=== PATIENT | male | born 1965 | race Caucasian/White ===

== ENCOUNTER 2025-01-26 07:34 | Inpatient (IN) | payer BC, OTHER ==
[2025-01-26] VITALS (12 sets, daily range): BP systolic 140–164; BP diastolic 88–102; PULSE 84–101; RESP 12–22; TEMP 97.8–100.5; O2SAT 93–97
[~2025-01-26] VITALS: Ht 172.7 cm; Wt 90.0 kg
--- NOTE | 2025-01-26 07:51 | ED.PDOC ---
HPI Comments 59 year old male presents to the ED with a PMHx of HTN, and DM associated to the c/c of non-radiating sternal CP. Pt states that he woke up at 4am this morning to use the restroom, and upon standing felt a pressure like sensation in his chest. Pt Denies fever, chills, coughing, N/V/D, SOB, or other associated symptoms, modifiers, or recent injuries or sick contact that this time. Chief Complaint: Chest Pain Time Seen by MD: 07:47 Reviewed Notes: Medications, Allergies Allergies: Coded Allergies: NO KNOWN ALLERGIES (Unverified , 01/26/25) Information Source: Patient Mode of Arrival: Ambulatory Severity: Moderate Timing: Hours Duration: Since onset, Hours Prehospital treatment: None Location: Substernal Radiation: No Radiation Quality: Pressure Onset: At Rest Cardiac Risk Factors: HTN, Diabetes PE Risk Factors: None History of: None Modifying Factors: Nothing Associated Signs and Symptoms: None Past Medical History PAST MEDICAL HISTORY: DM, HTN Surgical History: Denies all surgeries Family History Family History: Reviewed,noncontributory to illness, No family hx of Cancer, No family hx of DM, No family hx of Heart chantell, No family hx of HTN, No family hx ofKidney chantell, No family hx of Liver chantell, No family hx of Lung chantell, No family hx of Stroke Social History Smoker: Non-Smoker Alcohol: Denies ETOH Use Drugs: Denies Drug Use Lives In: Home Constitutional: denies: chills, diaphoresis, fatigue, fever, malaise, sweats, weakness, others EENTM: denies: blurred vision, double vision, ear bleeding, ear discharge, ear drainage, ear pain, ear ringing, eye pain, eye redness, hearing loss, mouth pain, mouth swelling, nasal discharge, nose bleeding, nose congestion, nose pain, photophobia, tearing, throat pain, throat swelling, voice changes, others Respiratory: denies: cough, hemoptysis, orthopnea, SOB at rest, shortness of breath, SOB with excertion, stridor, wheezing, others Cardiovascular: reports: chest pain; denies: dizzy spells, diaphoresis, Dyspnea on exertion, edema, irregular heart beat, left arm pain, lightheadedness, palpitations, PND, syncope, others Gastrointestinal: denies: abdomen distended, abdominal pain, blood streaked bowels, constipated, diarrhea, dysphagia, difficulty swallowing, hematemesis, melena, nausea, poor appetite, poor fluid intake, rectal bleeding, rectal pain, vomiting, others Genitourinary: denies: burning, dysuria, flank pain, frequency, hematuria, incontinence, penile discharge, penile sore, pain, testicle pain, testicle swelling, urgency, others Neurological: denies: dizziness, fainting, headache, left sided numbness, left sided weakness, numbness, paresthesia, pre-existing deficit, right sided numbness, right sided weakness, seizure, speech problems, tingling, tremors, weakness, others Musculoskeletal: denies: back pain, gout, joint pain, joint swelling, muscle pain, muscle stiffness, neck pain, others Integumetry: denies: bruises, change in color, change in hair/nails, dryness, laceration, lesions, lumps, rash, wounds, others Allergic/Immunocompromised: denies: Difficulty Healing, Frequent Infections, Hives, Itching, others Hematologic/Lymphatic: denies: anemia, blood clots, easy bleeding, easy bruising, swollen glands, others Endocrine: denies: excessive hunger, excessive sweating, excessive thirst, excessive urination, flushing, intolerance to cold, intolerance to heat, unexplained weight gain, unexplained weight loss, others Psychiatric: denies: anxiety, bipolar disorder, depression, hopeless, panic disorder, schizophrenia, sleepless, suicidal, others All Other Systems: Reviewed and Negative Physical Exam General Appearance: Mild Distress, Obese HEENT: Pharynx Normal Neck: Non-Tender Respiratory: No Respiratory Distress Cardiovascular: No Murmur Breast Exam: Deferred Gastrointestinal: No Organomegaly Genitalia: Deferred Pelvic: Deferred Rectal: Deferred Extremities: No pedal edema Neurologic: No Motor Deficits Cerebellar Function: NOT DONE Reflexes: NOT DONE Skin: Normal Color Lymphatic: NOT DONE Was a procedure done? Was a procedure done?: No CP Differential Dx Differential Diagnosis: MAT, ME Differential Diagnosis: HTN Essential, HTN Accelerated Differential Diagnosis: Chest Wall Pain, Myocardial Infarction, Pericarditis X-Ray, Labs, Meds, VS Vital Signs Date Time Temp Pulse Resp B/P (MAP) Pulse Ox O2 Delivery O2 Flow Rate FiO2 01/26/25 07:41 97.8 98 18 164/103 (123) 97 97.8 01/26/25 07:40 89 Lab Test 01/26/25 08:32 01/26/25 07:43 Range/Units Troponin I High Sensitivity Pending 1201 *H </=54 ng/L White Blood Count 6.5 4.4-10.8 10^3/uL Red Blood Count 5.27 4.5-5.90 10^6/uL Hemoglobin 17.0 13.5-17.5 g/dL Hematocrit 48.0 41.0-53.0 % Mean Corpuscular Volume 91.1 80.0-100.0 fL Mean Corpuscular Hemoglobin 32.2 H 28.0-32.0 pg Mean Corpuscular Hemoglobin Concent 35.3 32.0-36.0 g/dL Red Cell Distribution Width 12.9 11.8-14.3 % Platelet Count 165 140-450 10^3/uL Mean Platelet Volume 8.6 6.9-10.8 fL Neutrophils (%) (Auto) 82.2 H 37.0-80.0 % Lymphocytes (%) (Auto) 13.1 10.0-50.0 % Monocytes (%) (Auto) 3.5 0.0-12.0 % Eosinophils (%) (Auto) 0.2 0.0-7.0 % Basophils (%) (Auto) 1.0 0.0-2.0 % Neutrophils # (Auto) 5.3 1.6-8.6 10 ^3/uL Lymphocytes # (Auto) 0.9 0.4-5.4 10 ^3/uL Monocytes # (Auto) 0.2 0-1.3 10 ^3/uL Eosinophils # (Auto) 0 0-0.8 10 ^3/uL Basophils # (Auto) 0.1 0-0.2 10 ^3/uL Nucleated Red Blood Cells 0.1 % Sodium Level 131 L 136-145 mmol/L Potassium Level 3.7 3.5-5.1 mmol/L Chloride Level 96 L 98-107 mmol/L Carbon Dioxide Level 21 20-31 mmol/L Anion Gap 14 5-15 Blood Urea Nitrogen 12 9-23 mg/dL Creatinine 1.01 0.700-1.30 mg/dL Glomerular Filtration Rate Calc 85 >90 mL/min BUN/Creatinine Ratio 11.9 10.0-20.0 Serum Glucose 483 *H 74-106 mg/dL Calcium Level 10.3 8.7-10.4 mg/dL Current Medications Medications (Trade) Dose Ordered Sig/Garett Route Start Time Stop Time Status Last Admin Aspirin 324 mg ONCE ONCE PO 01/26/25 08:15 01/26/25 08:16 DC 01/26/25 08:17 ORDERING PHYSICIAN: JIMMY NAVA MD PROCEDURE(s): CXRP - CHEST PORTABLE REASON: CHEST PAIN ORDER NUMBER(s): [id number], ACCESSION NUMBER(s): [id number] CHEST RADIOGRAPH Indication: CHEST PAIN Technique: Single frontal view of the chest was obtained COMPARISON: None FINDINGS: Lines and Tubes: None Lungs: Clear Pleura: No effusion. No pneumothorax. Cardiomediastinal contours: Unremarkable Bones: Unremarkable IMPRESSION: No acute disease. Time of 1ST Reevaluation: 08:17 Reevaluation 1ST: Unchanged Patient Education/Counseling: Diagnosis, Treatment Family Education/Counseling: No Family Present Departure 1 Departure Time of Disposition: 08:51 (Patient presented with chest pain that was concerning for possible STEMI, ACS, PE, Pneumonia, Muscle Strain, COPD, Dissection. Data: 1. I ordered and reviewed the result of at least 3 labs including a CBC, BMP, and Troponin. 2. I independently interpreted the following tests: EKG which shows normal sinus and Chest X-ray which shows benign chest.Risk:This patient has a high risk of morbidity due to further diagnostic testing or treatment and may suffer from an acute cardiac or respiratory disorder. Workup reveals NSTEMI and uncontrolled diabetes and patient should be admitted for further workup and possible expert consultation. ) Impression: Primary Impression: NSTEMI (non-ST elevated myocardial infarction) Additional Impressions: Uncontrolled diabetes mellitus Qualified Codes: E11.65 - Type 2 diabetes mellitus with hyperglycemia Acute chest pain Disposition: ADMITTED INPATIENT Admit to: Tele Condition: Guarded Critical Care Note Critical Care Time?: Yes Critical care comment: Acute chest pain Authorized and Performed by: Jimmy Nava MD Total critical care time: Approximately 39 minutes Due to a high probability of clinically significant, life threatening deterioration, the patient required my highest level of preparedness to intervene emergently and I personally spent this critical care time directly and personally managing the patient. This critical care time included obtaining a history; examining the patient; pulse oximetry; ordering and review of studies; arranging urgent treatment with development of a management plan; evaluation of patient's response to treatment; frequent reassessment; and, discussions with other providers. This critical care time was performed to assess and manage the high probability of imminent, life-threatening deterioration that could result in multi-organ failure. It was exclusive of separately billable procedures and treating other patients and teaching time. Please see my other sections and the rest of the note for further information on patient assessment and treatment. Stability Stability form required: No Heart Score Heart Score: Heart Score Response (Comments) Value History Moderate Suspicious 1 EKG Normal 0 Age 45-64 1 Risk Factors >3 or Hx ASHD 2 Troponin >3 x's Normal limit 2 Total 6 I personally scribed for JIMMY NAVA MD ([email or web address]) on 01/26/25 at 07:51. El ectronically submitted by Ruy Flaherty ([email or web address]). I personally scribed for JIMMY NAVA MD ([email or web address]) on 01/26/25 at 08:22. E lectronically submitted by Jadiel Zacarias ([email or web address]). I personally scribed for JIMMY NAVA MD ([email or web address]) on 01/26/25 at 08:36. El ectronically submitted by Ruy Flaherty ([email or web address]). JIMMY NAVA MD January 26, 2025 07:51
[2025-01-26 07:57] LABS: Basophils # (auto) 0.1 10 ^3/uL (0-0.2); Eosinophils # (auto) 0 10 ^3/uL (0-0.8); Eosinophils % (auto) 0.2 % (0.0-7.0); Lymphocytes # (auto) 0.9 10 ^3/uL (0.4-5.4); Lymphocytes % (auto) 13.1 % (10.0-50.0); Mean Corpuscular Hemoglobin 32.2 pg (28.0-32.0); Mean Corpuscular Hgb Conc. 35.3 g/dL (32.0-36.0); Mean Corpuscular Volume 91.1 fL (80.0-100.0); Monocytes # (auto) 0.2 10 ^3/uL (0-1.3); Monocytes % (auto) 3.5 % (0.0-12.0); Neutrophils # (auto) 5.3 10 ^3/uL (1.6-8.6); Neutrophils % (auto) 82.2 % (37.0-80.0); Nucleated Red Blood Cells % 0.1 %; Platelet Count (auto) 165 10^3/uL (140-450); Red Blood Cells 5.27 10^6/uL (4.5-5.90); Red Cell Distribution Width 12.9 % (11.8-14.3); White Blood Cell 6.5 10^3/uL (4.4-10.8)
[2025-01-26 07:59] LABS: Potassium 3.7 mmol/L (3.5-5.1)
[2025-01-26 08:00] LABS: Anion Gap 14 (5-15); Calcium 10.3 mg/dL (8.7-10.4); Carbon Dioxide 21 mmol/L (20-31)
[2025-01-26 08:02] LABS: Chloride 96 mmol/L (98-107); Sodium 131 mmol/L (136-145)
[2025-01-26 08:05] LABS: BUN/Creatinine Ratio 11.9 (10.0-20.0); Blood Urea Nitrogen 12 mg/dL (9-23)
[2025-01-26 08:09] LABS: Glucose 483 mg/dL (74-106)
--- NOTE | 2025-01-26 08:13 | DVH ---
CHEST RADIOGRAPH Indication: CHEST PAIN Technique: Single frontal view of the chest was obtained COMPARISON: None FINDINGS: Lines and Tubes: None Lungs: Clear Pleura: No effusion. No pneumothorax. Cardiomediastinal contours: Unremarkable Bones: Unremarkable IMPRESSION: No acute disease.
[2025-01-26] MEDS: ASPirin 81 mg TAB PO ONE ×2 (08:17→11:12)
[2025-01-26] MEDS: InsuLIN REG 1unit/0.01ml Soln (100units/ml) IV ONE (09:10)
[2025-01-26] MEDS: HEPARIN SODIUM (PORCINE) 5000 UNITS/ML 1ML VIAL IV ONE (09:19)
[2025-01-26 09:20] LABS: INR 1.01 (0.9-1.15); Partial Thromboplastin Time 25.1 SEC (24.5-34.5); Prothrombin Time 10.7 sec (9.3-11.8)
[2025-01-26] MEDS: HEPARIN DRIP/D5W 100UNITS/ML 250 ML IV SCH (09:22)
[2025-01-26] MEDS ORDERED: HYDROcodone-ACET 5/325MG TAB PO PRN (11:00)
[2025-01-26] MEDS ORDERED: NITROGLYCERIN 0.4 MG SL TAB SL PRN (11:00)
[2025-01-26] MEDS ORDERED: MORPHINE SULFATE INJ 2 MG/ml SYRG IV PRN (11:00)
[2025-01-26] MEDS: ACCU-CHEK COMFORT CURVE STRIP VI SCH (11:30)
[2025-01-26] MEDS: InsuLIN REG 1unit/0.01ml Soln (100units/ml) SC SCH (11:30)
[2025-01-26] MEDS ORDERED: HEPARIN DRIP/D5W 100UNITS/ML 250 ML IV SCH (11:30)
[2025-01-26] MEDS ORDERED: DEXTROSE (50%) 50ML SYRG IV PRN (11:30)
[2025-01-26] MEDS: IODIXANOL 320MG/ML 100ML BTL IV ONE ×3 (12:21→13:59)
[2025-01-26] MEDS: HEPARIN SODIUM (PORCINE) 5000 UNITS/ML 1ML VIAL ONE (12:44)
[2025-01-26] MEDS: fentaNYL CITRATE 100 MCG/2 ML VL ONE (12:44)
[2025-01-26] MEDS: VERAPAMIL 2.5MG/ML INJ 2ML VIAL IV ONE (12:44)
[2025-01-26] MEDS: SODIUM CHL 0.9% 50 ML ONE ×2 (12:45→12:47)
[2025-01-26] MEDS: MIDAZOLAM HCL 2MG/2ML 2ml VIAL (1mg/ml) ONE (12:45)
[2025-01-26] MEDS: LIDOCAINE 2%HCL (LOCAL ANESTH.) INJ 10ml MDV ONE (12:46)
[2025-01-26] MEDS: ANGIOMAX 250 MG VIAL IV ONE (12:46)
[2025-01-26] MEDS: CLOPIDOGREL BISULFATE 75 MG TAB PO ONE (13:02)
[2025-01-26] MEDS: CLOPIDOGREL BISULFATE 75 MG TAB ONE (13:04)
--- NOTE | 2025-01-26 13:31 | DVHCONRES ---
Date Seen: January 26, 2025 Resident Creating Document: MIGUEL BURR RESIDENT History of Present Illness 59 year old male with PMH of DM, HTN persented with complaints of chest pain that started at 4 am which the patient described as 10/10, pressure like, substernal, exacerbated on activity, not relieved with rest, non radiating. Denied any shortness of breath, palpitation, orthopnea, PND. Past medical history Diabetes mellitus, hypertension Past surgical history Denied Family history Father at the age of 55 due to myocardial infarction Social history Denied smoking, marijuana, alcohol and any other drug intake Medication history Glipizide Rosuvastatin Allergies: Coded Allergies: NO KNOWN ALLERGIES (Unverified , 01/26/25) Home Meds Reported Medications Tamsulosin Hcl (Tamsulosin Hcl) 0.4 Mg Cap, CAP PO 01/26/25 Glipizide (Glipizide) 5 Mg Tab, 1 TAB PO DAILY 01/26/25 Current Medications Current Medications Medications (Trade) Dose Ordered Sig/Garett Route PRN Reason Start Time Stop Time Status Last Admin Heparin Sodium/ Dextrose 250 ml @ 10 mls/hr Q24H IV 01/26/25 09:00 01/26/25 13:01 DC 01/26/25 09:22 Acetaminophen/ Hydrocodone Bitart ([place] 5/325MG Tab) 1 tab Q4HP PRN PO MODERATE PAIN (4-6 PAIN SCALE) 01/26/25 11:00 Enoxaparin Sodium (Lovenox) 30 mg DAILY SC 01/27/25 10:00 01/26/25 11:06 DC Acetaminophen (Tylenol Tablet) 650 mg Q6HP PRN PO PAIN SCALE 1-3 OR TEMP>100.4 01/26/25 11:00 Morphine Sulfate 2 mg Q4HPRN PRN IV SEVERE PAIN (7-10 PAIN SCALE) 01/26/25 11:00 Nitroglycerin (Ntrostat Sublingual) 0.4 mg Q5MINP PRN SL FOR CHEST PAIN 01/26/25 11:00 Morphine Sulfate 2 mg Q30M PRN IV FOR CHEST PAIN 01/26/25 11:00 Heparin Sodium/ Dextrose 250 ml @ 10 mls/hr Q24H IV 01/26/25 11:30 Diagnostic Test (Pha) (Accu-Chek Comfort Curve T) 1 strip ACHS 01/26/25 11:30 Insulin Human Regular (InsuLIN R) ACHS SC 01/26/25 11:30 Dextrose 50 ml UD PRN IV Blood Sugar LESS THAN 60 01/26/25 11:30 Pravastatin Sodium (Pravachol Tablet) 20 mg HS PO 01/26/25 22:00 Enoxaparin Sodium (Lovenox) 30 mg DAILY SC 01/27/25 10:00 01/26/25 12:19 DC Review of Systems As described in the HPI Vital Signs Vital Signs Date Time Temp Pulse Resp B/P (MAP) Pulse Ox O2 Delivery O2 Flow Rate FiO2 01/26/25 12:00 106 01/26/25 12:00 21 153/108 (123) 93 01/26/25 09:48 Room Air* 2 N/A Nasal Cannula* 01/26/25 07:41 97.8 97.8 Physical Exam Examination General Appearance: Alert, Oriented X3, Cooperative, No acute distress HEENT: EOMI Respiratory: Clear to auscultation, Normal air movement Cardiovascular: Regular rate, Normal S1, Normal S2 Abdominal: Normal bowel sounds Extremities: No cyanosis, No edema, Normal pulses, No tenderness/swelling Skin: No rashes, No breakdown Neuro: Normal gait, Normal speech, Strength at 5/5 X4 ext, Normal tone, Sensation intact, Cranial nerves 3-12 NL, Reflexes 2+ Psych/Mental Status: Mental status NL, Mood NL Labs/Diagnostic Data Labs Test 01/26/25 10:40 01/26/25 09:08 01/26/25 07:43 Range/Units Troponin I High Sensitivity 5555 *H </=54 ng/L POC Glucose 370 H 70-106 mg/dl White Blood Count 6.5 4.4-10.8 10^3/uL Red Blood Count 5.27 4.5-5.90 10^6/uL Hemoglobin 17.0 13.5-17.5 g/dL Hematocrit 48.0 41.0-53.0 % Mean Corpuscular Volume 91.1 80.0-100.0 fL Mean Corpuscular Hemoglobin 32.2 H 28.0-32.0 pg Mean Corpuscular Hemoglobin Concent 35.3 32.0-36.0 g/dL Red Cell Distribution Width 12.9 11.8-14.3 % Platelet Count 165 140-450 10^3/uL Mean Platelet Volume 8.6 6.9-10.8 fL Neutrophils (%) (Auto) 82.2 H 37.0-80.0 % Lymphocytes (%) (Auto) 13.1 10.0-50.0 % Monocytes (%) (Auto) 3.5 0.0-12.0 % Eosinophils (%) (Auto) 0.2 0.0-7.0 % Basophils (%) (Auto) 1.0 0.0-2.0 % Neutrophils # (Auto) 5.3 1.6-8.6 10 ^3/uL Lymphocytes # (Auto) 0.9 0.4-5.4 10 ^3/uL Monocytes # (Auto) 0.2 0-1.3 10 ^3/uL Eosinophils # (Auto) 0 0-0.8 10 ^3/uL Basophils # (Auto) 0.1 0-0.2 10 ^3/uL Nucleated Red Blood Cells 0.1 % Prothrombin Time 10.7 9.3-11.8 sec Prothrombin Time INR 1.01 0.9-1.15 Activated Partial Thromboplast Time 25.1 24.5-34.5 SEC Sodium Level 131 L 136-145 mmol/L Potassium Level 3.7 3.5-5.1 mmol/L Chloride Level 96 L 98-107 mmol/L Carbon Dioxide Level 21 20-31 mmol/L Anion Gap 14 5-15 Blood Urea Nitrogen 12 9-23 mg/dL Creatinine 1.01 0.700-1.30 mg/dL Glomerular Filtration Rate Calc 85 >90 mL/min BUN/Creatinine Ratio 11.9 10.0-20.0 Serum Glucose 483 *H 74-106 mg/dL Calcium Level 10.3 8.7-10.4 mg/dL Plan/Recommendation Assessment/plan # chest pain likely NSTEMI EKG reveals no ST changes Trops= 1201, 1672, 5555 # hypertension # diabetes mellitus type 2 Plan Patient was given aspirin 325 mg in the ER Started on heparin drip, continue with same Plavix 300 mg once Atorvastatin 80 mg once IV morphine for chest pain p.r.n. 0.4 mg nitroglycerin p.r.n. Nasal cannula if SpO2 less than 94% Discussed with the manager terminal, patient planned to have left heart catheterization coronary angiogram possible percutaneous transluminal coronary angioplasty with possible stent placement Patient was explained about risk/benefit of left heart catheterization, and also risk/benefit not going for the procedure including Patient understood all the risk and benefits. Case discussion with Dr Paniagua. Plan discussed with: Patient, Other MIGUEL BURR RESIDENT January 26, 2025 13:31
--- NOTE | 2025-01-26 14:59 | DVHOP2 ---
Operative Report - 2 Report Details Date: 01/26/25 Preop Diagnosis: ACS Postop Diagnosis: SIGNIFICANT LESION LAD. SUCCESSFUL PTCA STENTING AND ULTRASOUND OF THE LAD. Surgeon: Carlo Loredo MD Anesthesiologist: Conscious sedation Anesthesia: Mac, Local Consent: The patient was informed of the risks and benefits of the procedure. These include but are not limited to complications of anesthesia, postoperative infection, incomplete relief of symptoms, recurrence of symptoms, damage to blood vessels, nerves and tendons, deep venous thrombosis, pulmonary embolism and possible need for repeat surgery in the future. Complications: No complications Findings: Lad stenosis Indications for Surgery: Acute coronary syndrome non ST-elevation PR. Name of Procedure Performed Left heart catheterization bilateral cine coronary angiography. Left ventriculography intravascular ultrasound of LAD and intermediate artery. PTCA and stenting of left anterior descending coronary artery. Procedure Details Procedure Details: Prior local anesthesia with 2% lidocaine to the right wrist and full informed consent obtained the patient is prepped and draped in usual fashion followed by placement of a six [place] sheath into the right radial artery through which a 3- 0 EBU guiding catheter was used to perform angioplasty of the LAD. A multipurpose catheter was used to cannulate the right coronary ostium and for ventriculography without complications. Hemodynamics:: Aortic blood pressure was 130/70. End-diastolic pressure was 16 with a gradient across the aortic valve on pullback. Coronary anatomy: The RCA is a large vessel it has sluggish flow. There is mild to moderate plaquing and ectasia. PDA and posterolateral branches are normal as is the RCA itself. Left main is large and normal. The left anterior descending is a large vessel it has no stenosis in its proximal mid or distal segments. Left anterior descending coronary artery has a severe stenosis of 99% proximally. It is hazy. The mid and distal segments of the LAD could not be well-visualized. There is LOUIE one grade flow. The intermediate artery adjacent to the LAD also has mild haziness. Uncertain stenosis from a angiographic evaluation however intravascular ultrasound was performed showing there was a proximally a 60-70% lesion with a heart a critical narrowing. The circumflex is a large vessel with moderate plaquing it is nondominant. The marginals free of significant disease Ventriculography in the ROUSE projection shows an EF of 55%. Angioplasty was performed for which the three five EBU guide was used to evaluate the left main LAD and left coronary system. A Specter wire was placed into the LAD and a 2nd Specter was placed into the intermediate artery. Intravascular ultrasound evaluation of both arteries then was performed. There was a significant lesion in the LAD and a moderate lesion intermediate. We then proceeded to perform angioplasty with a three five balloon into the LAD. We then placed a three 5 x 12 mm stent into the proximal LAD and 2nd intravascular ultrasound revealed poor apposition distal segment which we took a 5 mm balloon and inflated to 10 atmospheres with notable improvement in flow. There was no thrombus formation under dissection. post dilatation ultrasound revealed excellent opposition. There was no impingement of flow into the intermediate vessel. The patient tolerated the procedure well there were no complications Impression: Successful PTCA and stenting of the LAD. Single-vessel coronary artery disease as mentioned. Moderate disease of the intermediate without critical lesions. Normal left ventricular ejection fraction. Mildly elevated left ventricular end-diastolic pressure at rest. Recommendations: Patient would undergo risk factor modification continue lipid- lowering therapy dual antiplatelet therapy for at least a year. Blood pressure control. Condition Good Disposition Still a Patient Date of Service: January 26, 2025 Billing Provider: CARLO LOREDO Sr., MD Cardiology Common Codes: PROCEDURE ONLY Cardiology Procedure Codes: 55221 -PTCA W/STENT PLACEMENT, 78322-KMEF FOR STEMI W/STENT ( Intravascular ultrasound of left anterior descending coronary artery left main and intermediate artery. PTCA and stenting of the LAD. Left heart catheterization bilateral cine coronary angiography left ventriculography.) CARLO LOREDO Sr., MD January 26, 2025 14:59
[2025-01-26] MEDS: ATORVASTATIN 20 MG TAB PO ONE (15:27)
[2025-01-26] MEDS: SODIUM CHLORIDE 0.9% 1,000 ML IV SCH (15:28)
[2025-01-26] MEDS ORDERED: TAMS0.4C39 PO (17:07)
[2025-01-26] MEDS ORDERED: GLIP5TAB21 PO (17:07)
--- NOTE | 2025-01-26 17:08 | DVHHP2 ---
History of Present Illness History of Present Illness 59-year-old male with a history type 2 diabetes, hyperlipidemia presents to emergency room for sudden onset of chest pain last night. Patient was awakened by pressure-like chest pain at night. Chest pain was not relieved. Patient denies any fever chills Review of Systems Eyes: No: Pain, Vision change, Conjunctivae inflammation, Eyelid inflammation, Other, Redness Cardiovascular: Chest Pain Gastrointestinal: No: Nausea, Vomiting, Abdominal Pain, Diarrhea, Constipation, Melena, Hematochezia, Other Genitourinary: No Dysuria, No Frequency, No Incontinence, No Hematuria, No Retention, No Other Musculoskeletal: No: other, neck pain, shoulder pain, arm pain, back pain, hand pain, leg pain, foot pain Allergies: Coded Allergies: NO KNOWN ALLERGIES (Unverified , 01/26/25) Medications Current Medications Medications Dose Ordered Sig/Garett Route Start Time Stop Time Status Last Admin Dose Admin Acetaminophen/ Hydrocodone Bitart 1 tab Q4HP PRN PO 01/26/25 11:00 Acetaminophen 650 mg Q6HP PRN PO 01/26/25 11:00 Morphine Sulfate 2 mg Q4HPRN PRN IV 01/26/25 11:00 Nitroglycerin 0.4 mg Q5MINP PRN SL 01/26/25 11:00 Morphine Sulfate 2 mg Q30M PRN IV 01/26/25 11:00 Diagnostic Test (Pha) 1 strip ACHS 01/26/25 11:30 Insulin Human Regular ACHS SC 01/26/25 11:30 Dextrose 50 ml UD PRN IV 01/26/25 11:30 Pravastatin Sodium 20 mg HS PO 01/26/25 22:00 Sodium Chloride 1,000 ml @ 75 mls/hr [id number] IV 01/26/25 15:00 01/27/25 02:59 01/26/25 15:28 75 MLS/HR Aspirin 81 mg DAILY PO 01/27/25 10:00 Clopidogrel Bisulfate 75 mg DAILY PO 01/27/25 10:00 Exam Vital Signs Vital Signs Date Time Temp Pulse Resp B/P (MAP) Pulse Ox O2 Delivery O2 Flow Rate FiO2 01/26/25 15:44 88 12 150/96 (114) 96 01/26/25 14:44 98.3 98.3 01/26/25 09:48 Room Air* 2 N/A Nasal Cannula* General Appearance: Alert, Oriented X3 HEENT: Atraumatic Respiratory: Clear to auscultation, Normal air movement Cardiovascular: Regular rate, Normal S1, Normal S2, No murmurs Abdominal: Normal bowel sounds, Soft, No tenderness, No hepatospenomegaly Extremities: No clubbing Labs/Xrays Labs Test 01/26/25 15:25 01/26/25 09:08 01/26/25 07:43 Range/Units Troponin I High Sensitivity 33420 *H </=54 ng/L POC Glucose 370 H 70-106 mg/dl White Blood Count 6.5 4.4-10.8 10^3/uL Red Blood Count 5.27 4.5-5.90 10^6/uL Hemoglobin 17.0 13.5-17.5 g/dL Hematocrit 48.0 41.0-53.0 % Mean Corpuscular Volume 91.1 80.0-100.0 fL Mean Corpuscular Hemoglobin 32.2 H 28.0-32.0 pg Mean Corpuscular Hemoglobin Concent 35.3 32.0-36.0 g/dL Red Cell Distribution Width 12.9 11.8-14.3 % Platelet Count 165 140-450 10^3/uL Mean Platelet Volume 8.6 6.9-10.8 fL Neutrophils (%) (Auto) 82.2 H 37.0-80.0 % Lymphocytes (%) (Auto) 13.1 10.0-50.0 % Monocytes (%) (Auto) 3.5 0.0-12.0 % Eosinophils (%) (Auto) 0.2 0.0-7.0 % Basophils (%) (Auto) 1.0 0.0-2.0 % Neutrophils # (Auto) 5.3 1.6-8.6 10 ^3/uL Lymphocytes # (Auto) 0.9 0.4-5.4 10 ^3/uL Monocytes # (Auto) 0.2 0-1.3 10 ^3/uL Eosinophils # (Auto) 0 0-0.8 10 ^3/uL Basophils # (Auto) 0.1 0-0.2 10 ^3/uL Nucleated Red Blood Cells 0.1 % Prothrombin Time 10.7 9.3-11.8 sec Prothrombin Time INR 1.01 0.9-1.15 Activated Partial Thromboplast Time 25.1 24.5-34.5 SEC Sodium Level 131 L 136-145 mmol/L Potassium Level 3.7 3.5-5.1 mmol/L Chloride Level 96 L 98-107 mmol/L Carbon Dioxide Level 21 20-31 mmol/L Anion Gap 14 5-15 Blood Urea Nitrogen 12 9-23 mg/dL Creatinine 1.01 0.700-1.30 mg/dL Glomerular Filtration Rate Calc 85 >90 mL/min BUN/Creatinine Ratio 11.9 10.0-20.0 Serum Glucose 483 *H 74-106 mg/dL Calcium Level 10.3 8.7-10.4 mg/dL Assessment/Plan Assessment/Plan 1. Non-STEMI likely type 1 S/P stent placement to LAD, cardiac consult, heparin drip 2. Type 2 diabetes Insulin sliding scale 3. Hyperlipidemia Start atorvastatin 80 4. Obesity Monitor Plan discussed with: Patient My Orders Orders - MARILYN PALMA Procedure Category Date Status Time Admit ADMIT 01/26/25 Transmitted 10:46 Allergies EFREN 01/26/25 In Process 10:46 Code Status CODE 01/26/25 Transmitted 10:46 Hydrocodone-Acet PHA 01/26/25 In Process 5/325mg Tab ([place] 11:00 Echo 2d Mode Cardiac US 01/26/25 Taken DOP 10:46 Condition: Fair EFREN 01/26/25 In Process 10:46 Acetaminophen Tablet PHA 01/26/25 In Process (Tylenol Tablet) 11:00 Morphine Sulfate PHA 01/26/25 In Process Injection 11:00 Nitroglycerin PHA 01/26/25 In Process Sublingual (Ntrostat 11:00 Morphine Sulfate PHA 01/26/25 In Process Injection 11:00 Notify Of Changes EFREN 01/26/25 In Process From Base 10:46 Gas Examiner For [facility] 01/26/25 In Process 24 Hours 10:46 Emergency Dysrhythmia EFREN 01/26/25 In Process Protocol 10:46 Rhythm Strips Once EFREN 01/26/25 In Process Every Shift 10:46 Oxygen By Nasal RT 01/26/25 Transmitted Cannula 10:46 Troponin-I Hs LAB 01/26/25 Logged 13:48 Pharmacy EFREN 01/26/25 In Process Clarification: 23:59 Glucose Blood PHA 01/26/25 In Process (Accu-Chek Comfort 11:30 Insulin R (Human) PHA 01/26/25 In Process (Insulin R) 11:30 Dextrose 50% Syringe PHA 01/26/25 In Process 11:30 Pravastatin Sodium PHA 01/26/25 In Process Tablet (Pravachol Tab 22:00 Date of Service: January 26, 2025 Billing Provider: IDA VARGAS MD Common Visit Codes: [id number] INP/OBS CARE (MOD) MARILYN PALMA SPECTROSCOPIST January 26, 2025 17:08
--- NOTE | 2025-01-26 17:35 | DVHSR ---
APPROVED REPORT EXAM: Two-dimensional and M-mode echocardiogram with Doppler and color Doppler. Blood Pressure: 160/96 mmHg INDICATION CHF RISK FACTORS Height: 68, Weight: 197 DIMENSIONS LVDd (3.8-5.7cm)LA (2D)3.6 (1.9-4.0cm)Aortic Root4.0 (2.0-3.7cm) LVDs (2.5-4.0cm)LA (MM) (1.9-4.0cm)Aortic Cusp Exc1.9 (1.5-2.0cm) EF (%) 65.0 (55-70%)Rt. Atrium3.3 (1.9-4.0cm)Asc. Aorta cm Mitral Valve MitralMitral Stenosis E wave0.42m/sMV Mean GR.mmHg A wave0.89m/sMV Peak GR.mmHg E/A ratio0.52D MVAcm2 DECEL [id number] 1/2 [id number] IVRTmsDop MVA3.04cm2 Aortic Valve Aortic ValveAortic Stenosis V10.99m/Heaven Mean GR.3mmHg V21.26m/Heaven Peak GR.6mmHg LVOT Diameter2.2 (1.8-2.4cm)Doppler AVA2.99cm2 Pulmonic Valve V20.95m/s Tricuspid Valve TR Velocity2.11m/s [id number] Conclusion Sinus rhythm. Aortic root enlargement. Valves are normal. EF of 45% with anterior hypokinesis. Normal RV function. Doppler reveals no significant regurgitant jets. No pericardial effusion masses or vegetations.
[2025-01-26] MEDS: MORPHINE SULFATE INJ 2 MG/ml SYRG IV PRN (18:08)
--- NOTE | 2025-01-26 19:02 | ECG ---
[facility] Test Date: 2025-01-26 Test Time: 08:40:14 Pat Name: ESTELA LEONARD Department: ED Room: 0296T Gender: M Operations Agent: nino : 1965 Requested By: JIMMY SALVADOR Order Number: [id number] Reading MD: Pelon Loredo Measurements Intervals [place] Rate: 93 P: 48 MA: 156 QRS: -56 QRSD: 94 T: 58 QT: 370 QTc: 461 Interpretive Statements Sinus rhythm Left anterior fascicular block Abnormal R-wave progression, late transition Electronically Signed On 01-29-2025 12:01:50 PDT by Pelon Loredo Please click the below link to view image of tracing.
--- NOTE | 2025-01-26 19:03 | ECG ---
[facility] Test Date: 2025-01-26 Test Time: 10:37:42 Pat Name: ESTELA LEONARD Department: ED Room: 0296T Gender: M Community Health Education Coordinator: nino : 1965 Requested By: JIMMY SALVADOR Order Number: [id number] Reading MD: Pelon Loredo Measurements Intervals [place] Rate: 97 P: 46 [place]: 157 QRS: -58 QRSD: 93 T: 41 QT: 363 QTc: 461 Interpretive Statements Sinus rhythm Left anterior fascicular block Abnormal R-wave progression, late transition Electronically Signed On 01-29-2025 12:01:58 PDT by Pelon Loredo Please click the below link to view image of tracing.
--- NOTE | 2025-01-26 19:43 | DVHINCON2 ---
Date of service: January 26, 2025 Referring Physician Danny Reason for Consultation NSTEMI History of Present Illness This is a 59 year old male with a PMH of DM, HTN who presented to the ED with complaints of chest pain that started at 4 am this morning which the patient described as 10/10, pressure like, substernal, exacerbated on activity, not relieved with rest, non radiating. CBC is unremarkable. EKG reveals no ST changes. TROP 1201, 1672, 5555. GLUC 370. Chest x-ray showed NAD. Patient was admitted to the hospital. I am asked to consult on this patient. Allergies: Coded Allergies: NO KNOWN ALLERGIES (Unverified , 01/26/25) Home Meds Reported Medications Tamsulosin Hcl (Tamsulosin Hcl) 0.4 Mg Cap, CAP PO 01/26/25 Glipizide (Glipizide) 5 Mg Tab, 1 TAB PO DAILY 01/26/25 Current Medications Current Medications Medications (Trade) Dose Ordered Sig/Garett Route PRN Reason Start Time Stop Time Status Last Admin Heparin Sodium/ Dextrose 250 ml @ 10 mls/hr Q24H IV 01/26/25 09:00 01/26/25 13:01 DC 01/26/25 09:22 Acetaminophen/ Hydrocodone Bitart ([place] 5/325MG Tab) 1 tab Q4HP PRN PO MODERATE PAIN (4-6 PAIN SCALE) 01/26/25 11:00 Enoxaparin Sodium (Lovenox) 30 mg DAILY SC 01/27/25 10:00 01/26/25 11:06 DC Acetaminophen (Tylenol Tablet) 650 mg Q6HP PRN PO PAIN SCALE 1-3 OR TEMP>100.4 01/26/25 11:00 Morphine Sulfate 2 mg Q4HPRN PRN IV SEVERE PAIN (7-10 PAIN SCALE) 01/26/25 11:00 Nitroglycerin (Ntrostat Sublingual) 0.4 mg Q5MINP PRN SL FOR CHEST PAIN 01/26/25 11:00 Morphine Sulfate 2 mg Q30M PRN IV FOR CHEST PAIN 01/26/25 11:00 Heparin Sodium/ Dextrose 250 ml @ 10 mls/hr Q24H IV 01/26/25 11:30 01/26/25 14:50 DC Diagnostic Test (Pha) (Accu-Chek Comfort Curve T) 1 strip ACHS 01/26/25 11:30 Insulin Human Regular (InsuLIN R) ACHS SC 01/26/25 11:30 Dextrose 50 ml UD PRN IV Blood Sugar LESS THAN 60 01/26/25 11:30 Pravastatin Sodium (Pravachol Tablet) 20 mg HS PO 01/26/25 22:00 Enoxaparin Sodium (Lovenox) 30 mg DAILY SC 01/27/25 10:00 01/26/25 12:19 DC Sodium Chloride 1,000 ml @ 75 mls/hr [id number] IV 01/26/25 15:00 01/27/25 02:59 01/26/25 15:28 Review of Systems Constitutional: denies: chills, diaphoresis, fatigue, fever, malaise, sweats, weakness, others EENTM: denies: blurred vision, double vision, ear bleeding, ear discharge, ear drainage, ear pain, ear ringing, eye pain, eye redness, hearing loss, mouth pain, mouth swelling, nasal discharge, nose bleeding, nose congestion, nose pain, photophobia, tearing, throat pain, throat swelling, voice changes, others Respiratory: denies: cough, hemoptysis, orthopnea, SOB at rest, shortness of breath, SOB with excertion, stridor, wheezing, others Cardiovascular: reports: chest pain; denies: dizzy spells, diaphoresis, Dyspnea on exertion, edema, irregular heart beat, left arm pain, lightheadedness, palpitations, PND, syncope, others Gastrointestinal: denies: abdomen distended, abdominal pain, blood streaked bowels, constipated, diarrhea, dysphagia, difficulty swallowing, hematemesis, melena, nausea, poor appetite, poor fluid intake, rectal bleeding, rectal pain, vomiting, others Genitourinary: denies: burning, dysuria, flank pain, frequency, hematuria, incontinence, penile discharge, penile sore, pain, testicle pain, testicle swelling, urgency, others Neurological: denies: dizziness, fainting, headache, left sided numbness, left sided weakness, numbness, paresthesia, pre-existing deficit, right sided numbness, right sided weakness, seizure, speech problems, tingling, tremors, weakness, others Musculoskeletal: denies: back pain, gout, joint pain, joint swelling, muscle pain, muscle stiffness, neck pain, others Integumetry: denies: bruises, change in color, change in hair/nails, dryness, laceration, lesions, lumps, rash, wounds, others Allergic/Immunocompromised: denies: Difficulty Healing, Frequent Infections, Hives, Itching, others Hematologic/Lymphatic: denies: anemia, blood clots, easy bleeding, easy bruising, swollen glands, others Endocrine: denies: excessive hunger, excessive sweating, excessive thirst, excessive urination, flushing, intolerance to cold, intolerance to heat, unexplained weight gain, unexplained weight loss, others Psychiatric: denies: anxiety, bipolar disorder, depression, hopeless, panic disorder, schizophrenia, sleepless, suicidal, others All Other Systems: Reviewed and Negative Vital Signs Vital Signs Date Time Temp Pulse Resp B/P (MAP) Pulse Ox O2 Delivery O2 Flow Rate FiO2 01/26/25 12:44 150/91 01/26/25 12:00 106 01/26/25 12:00 21 93 01/26/25 09:48 Room Air* 2 N/A Nasal Cannula* 01/26/25 07:41 97.8 97.8 Physical Exam GENERAL: Alert and oriented x 3. No acute distress. EYES: PERRL, EOMI. Anicteric. HENT: Moist mucous membranes. LUNGS: Clear to auscultation bilaterally. CARDIOVASCULAR: Regular rate and rhythm. ABDOMEN: Soft, nontender and nondistended. EXTREMITIES: No edema. NEUROLOGIC: No focal neurological deficits. SKIN: Warm, dry. Labs/Diagnostic Data Labs Test 01/26/25 10:40 01/26/25 09:08 01/26/25 07:43 Range/Units Troponin I High Sensitivity 5555 *H </=54 ng/L POC Glucose 370 H 70-106 mg/dl White Blood Count 6.5 4.4-10.8 10^3/uL Red Blood Count 5.27 4.5-5.90 10^6/uL Hemoglobin 17.0 13.5-17.5 g/dL Hematocrit 48.0 41.0-53.0 % Mean Corpuscular Volume 91.1 80.0-100.0 fL Mean Corpuscular Hemoglobin 32.2 H 28.0-32.0 pg Mean Corpuscular Hemoglobin Concent 35.3 32.0-36.0 g/dL Red Cell Distribution Width 12.9 11.8-14.3 % Platelet Count 165 140-450 10^3/uL Mean Platelet Volume 8.6 6.9-10.8 fL Neutrophils (%) (Auto) 82.2 H 37.0-80.0 % Lymphocytes (%) (Auto) 13.1 10.0-50.0 % Monocytes (%) (Auto) 3.5 0.0-12.0 % Eosinophils (%) (Auto) 0.2 0.0-7.0 % Basophils (%) (Auto) 1.0 0.0-2.0 % Neutrophils # (Auto) 5.3 1.6-8.6 10 ^3/uL Lymphocytes # (Auto) 0.9 0.4-5.4 10 ^3/uL Monocytes # (Auto) 0.2 0-1.3 10 ^3/uL Eosinophils # (Auto) 0 0-0.8 10 ^3/uL Basophils # (Auto) 0.1 0-0.2 10 ^3/uL Nucleated Red Blood Cells 0.1 % Prothrombin Time 10.7 9.3-11.8 sec Prothrombin Time INR 1.01 0.9-1.15 Activated Partial Thromboplast Time 25.1 24.5-34.5 SEC Sodium Level 131 L 136-145 mmol/L Potassium Level 3.7 3.5-5.1 mmol/L Chloride Level 96 L 98-107 mmol/L Carbon Dioxide Level 21 20-31 mmol/L Anion Gap 14 5-15 Blood Urea Nitrogen 12 9-23 mg/dL Creatinine 1.01 0.700-1.30 mg/dL Glomerular Filtration Rate Calc 85 >90 mL/min BUN/Creatinine Ratio 11.9 10.0-20.0 Serum Glucose 483 *H 74-106 mg/dL Calcium Level 10.3 8.7-10.4 mg/dL Assessment Chest pain likely NSTEMI. Hypertension. Diabetes mellitus type 2. Plan/Recommendation I agree with your ongoing assessment and care of plan. Patient has been seen by Corey Treviño Resident, we have discussed the plan with the patient Patient was given aspirin 325 mg in the ER. Started on heparin drip, continue with same. Plavix 300 mg once. Atorvastatin 80 mg once. IV morphine for chest pain p.r.n.. 0.4 mg nitroglycerin p.r.n.. Nasal cannula if SpO2 less than 94%. Patient planned to have left heart catheterization coronary angiogram possible percutaneous transluminal coronary angioplasty with possible stent placement. Patient was explained about risk/benefit of left heart catheterization, and also risk/benefit not going for the procedure including . Patient understood all the risk and benefits. Additional plan as per the hospital course. Plan discussed with: Patient TAMIKA QUESADA MD January 26, 2025 15:40
[2025-01-26] MEDS: ACETAMINOPHEN 325 MG TAB PO PRN (19:58)
[2025-01-26] MEDS: PRAVASTATIN SODIUM 20 MG TAB PO SCH (21:57)
[2025-01-27 01:00] VITALS: BP 141/89; PULSE 90; RESP 18; TEMP 98; O2SAT 93
[2025-01-27 05:00] VITALS: BP 115/84; PULSE 102; RESP 17; TEMP 98.6; O2SAT 94
[2025-01-27] MEDS ORDERED: DEXTROSE (50%) 50ML SYRG IV PRN (07:00)
[2025-01-27 08:00] VITALS: PULSE 111
[2025-01-27 08:10] LABS: Basophils # (auto) 0 10 ^3/uL (0-0.2); Basophils % (auto) 0.4 % (0.0-2.0); Eosinophils # (auto) 0 10 ^3/uL (0-0.8); Eosinophils % (auto) 0.3 % (0.0-7.0); Hematocrit 50.7 % (41.0-53.0); Hemoglobin 17.9 g/dL (13.5-17.5); Lymphocytes # (auto) 1.1 10 ^3/uL (0.4-5.4); Lymphocytes % (auto) 12.5 % (10.0-50.0); Mean Corpuscular Hemoglobin 32.3 pg (28.0-32.0); Mean Corpuscular Hgb Conc. 35.3 g/dL (32.0-36.0); Mean Corpuscular Volume 91.6 fL (80.0-100.0); Monocytes # (auto) 0.7 10 ^3/uL (0-1.3); Neutrophils # (auto) 7.2 10 ^3/uL (1.6-8.6); Neutrophils % (auto) 78.8 % (37.0-80.0); Nucleated Red Blood Cells % 0.1 %; Platelet Count (auto) 171 10^3/uL (140-450); Red Blood Cells 5.53 10^6/uL (4.5-5.90); Red Cell Distribution Width 13.2 % (11.8-14.3); White Blood Cell 9.1 10^3/uL (4.4-10.8)
[2025-01-27 08:18] LABS: Alanine Aminotransferase 25 U/L (7-40); Albumin 4.8 g/dL (3.2-4.8); Anion Gap 13 (5-15); BUN/Creatinine Ratio 14.6 (10.0-20.0); Blood Urea Nitrogen 13 mg/dL (9-23); Carbon Dioxide 22 mmol/L (20-31); Chloride 98 mmol/L (98-107); Magnesium 2.1 mg/dL (1.6-2.6); Potassium 3.6 mmol/L (3.5-5.1); Total Protein 7.5 g/dL (5.7-8.2)
[2025-01-27] MEDS: InsuLIN REG 1unit/0.01ml Soln (100units/ml) SC SCH (08:19)
[2025-01-27] MEDS: ACCU-CHEK COMFORT CURVE STRIP VI SCH (08:19)
[2025-01-27] MEDS: CLOPIDOGREL BISULFATE 75 MG TAB PO SCH (08:19)
[2025-01-27] MEDS: ASPirin 81 mg TAB PO SCH (08:19)
[2025-01-27 08:28] LABS: Alkaline Phosphatase 118 U/L (46-116); Aspartate Aminotransferase 97 U/L (13-40); Bilirubin, Total 1.4 mg/dL (0.2-1.0); Glucose 288 mg/dL (74-106); Sodium 133 mmol/L (136-145)
[2025-01-27 08:30] VITALS: BP 148/94; PULSE 111; RESP 16; TEMP 98.3; O2SAT 94
[2025-01-27] MEDS ORDERED: CLOP75TA70 PO (09:49)
[2025-01-27] MEDS ORDERED: ASPI-325 PO (09:49)
[2025-01-27] MEDS ORDERED: ATOR20TA50 PO (09:51)
--- NOTE | 2025-01-27 09:52 | DVHDS2 ---
Discharge Summary Date of Admission January 26, 2025 at 10:46 Date of Discharge: January 27, 2025 Admitting Diagnosis ACS Labs/Diagnostic Data: Laboratory Results Test 01/27/25 08:08 01/27/25 07:38 01/26/25 17:27 01/26/25 07:43 POC Glucose 355 mg/dl (70-106) White Blood Count 9.1 10^3/uL (4.4-10.8) Red Blood Count 5.53 10^6/uL (4.5-5.90) Hemoglobin 17.9 g/dL (13.5-17.5) Hematocrit 50.7 % (41.0-53.0) Mean Corpuscular Volume 91.6 fL (80.0-100.0) Mean Corpuscular Hemoglobin 32.3 pg (28.0-32.0) Mean Corpuscular Hemoglobin Concent 35.3 g/dL (32.0-36.0) Red Cell Distribution Width 13.2 % (11.8-14.3) Platelet Count 171 10^3/uL (140-450) Mean Platelet Volume 8.4 fL (6.9-10.8) Neutrophils (%) (Auto) 78.8 % (37.0-80.0) Lymphocytes (%) (Auto) 12.5 % (10.0-50.0) Monocytes (%) (Auto) 8.0 % (0.0-12.0) Eosinophils (%) (Auto) 0.3 % (0.0-7.0) Basophils (%) (Auto) 0.4 % (0.0-2.0) Neutrophils # (Auto) 7.2 10 ^3/uL (1.6-8.6) Lymphocytes # (Auto) 1.1 10 ^3/uL (0.4-5.4) Monocytes # (Auto) 0.7 10 ^3/uL (0-1.3) Eosinophils # (Auto) 0 10 ^3/uL (0-0.8) Basophils # (Auto) 0 10 ^3/uL (0-0.2) Nucleated Red Blood Cells 0.1 % Sodium Level 133 mmol/L (136-145) Potassium Level 3.6 mmol/L (3.5-5.1) Chloride Level 98 mmol/L (98-107) Carbon Dioxide Level 22 mmol/L (20-31) Anion Gap 13 (5-15) Blood Urea Nitrogen 13 mg/dL (9-23) Creatinine 0.89 mg/dL (0.700-1.30) Glomerular Filtration Rate Calc 98 mL/min (>90) BUN/Creatinine Ratio 14.6 (10.0-20.0) Serum Glucose 288 mg/dL (74-106) Calcium Level 10.0 mg/dL (8.7-10.4) Magnesium Level 2.1 mg/dL (1.6-2.6) Total Bilirubin 1.4 mg/dL (0.2-1.0) Aspartate Amino Transferase (AST) 97 U/L (13-40) Alanine Aminotransferase (ALT) 25 U/L (7-40) Alkaline Phosphatase 118 U/L (46-116) Total Protein 7.5 g/dL (5.7-8.2) Albumin 4.8 g/dL (3.2-4.8) Troponin I High Sensitivity 98655 ng/L (</=54) Prothrombin Time 10.7 sec (9.3-11.8) Prothrombin Time INR 1.01 (0.9-1.15) Activated Partial Thromboplast Time 25.1 SEC (24.5-34.5) Other Laboratory Tests 01/27/25 07:38 Brief Hx & Hospital Course: 59-year-old male with a history of type 2 diabetes, hyperlipidemia, hypertension, obesity presented to the emergency room for chest pain. Patient was admitted for ACS, patient was taken to laborer pole crew by Dr. Denton and had stent placement to LAD. Per petroleum blending plant operator patient needs to be started on dual antiplatelet therapy with aspirin Plavix, carvedilol 6.25 b.i.d., Jardiance 10 mg daily, and losartan 25 mg upon discharge. Patient tolerated procedure well chest pain resolved. Patient was cleared by petroleum blending plant operator for discharge. Patient was also hyperglycemic was given IV insulin and blood sugar did improve. Patient is to follow up with PCP within one week of discharge. Condition at Discharge: Good Final Diagnosis/Problems List 1. ACS 2. Type 2 diabetes with hyperglcemia 3. Hyperlipidemia 4. new onset systolic CHF 4. Obesity 5 HTN Discharge Disposition: Still a Patient Discharge Instruct/Medications Diet: Cardiac 2g Na,low cholest Activity: No Restrictions, As Tolerated Follow Up/Referral: PCP within 1 week cardiology within 2 weeks Discharge Statement: "Patient was advised to return to the ER or call 911 if any headaches, dizziness, shortness of breath, chest pain, abdominal pain, bleeding, fevers, or worsening of medical condition. Patient was counseled about treatment plan, medications, possible side effects, patientverbalized understanding. All questions were answered to the best of my ability. This discharge took greater then 30 minutes in planning, reviewing documentation, counseling the patient, and discussing with other team members." ASSESSMENT ASSESSMENT Assessment 1. Non-STEMI likely type 1 2. Type 2 diabetes with hyperglcemia 3. Hyperlipidemia 4. Obesity MARILYN PALMA January 27, 2025 09:52
[2025-01-27] MEDS ORDERED: ENOXAPARIN SOD 30 MG/0.3 ML SYRINGE SC SCH ×2 (10:00)
[2025-01-27] MEDS: InsuLIN REG 1unit/0.01ml Soln (100units/ml) IV ONE (10:39)
[2025-01-27] MEDS ORDERED: CARV3.1240 PO (11:50)
--- NOTE | 2025-01-27 11:53 | DVHPN2 ---
Consult Progress Note Date Seen: January 27, 2025 Subjective Review of Systems: CVS:Normal, RESPIRATORY:Normal, NEURO:Normal Objective vital signs Vital Sign Date Time Temp Pulse Resp B/P (MAP) Pulse Ox O2 Delivery O2 Flow Rate FiO2 01/27/25 08:30 98.3 111 16 148/94 (112) 94 98.3 01/27/25 08:00 Room Air* 0 21 Total Intake and Output 01/26/25 01/26/25 01/27/25 15:00 23:00 07:00 Intake Total 30 ml 120 ml 600 ml Balance 30 ml 120 ml 600 ml medications Current Medications Medications Dose Ordered Sig/Garett Route Start Time Stop Time Status Last Admin Dose Admin Acetaminophen/ Hydrocodone Bitart 1 tab Q4HP PRN PO 01/26/25 11:00 Acetaminophen 650 mg Q6HP PRN PO 01/26/25 11:00 01/26/25 19:58 650 MG Morphine Sulfate 2 mg Q4HPRN PRN IV 01/26/25 11:00 01/26/25 18:08 2 MG Nitroglycerin 0.4 mg Q5MINP PRN SL 01/26/25 11:00 Morphine Sulfate 2 mg Q30M PRN IV 01/26/25 11:00 Pravastatin Sodium 20 mg HS PO 01/26/25 22:00 01/26/25 21:57 20 MG Aspirin 81 mg DAILY PO 01/27/25 10:00 01/27/25 08:19 81 MG Clopidogrel Bisulfate 75 mg DAILY PO 01/27/25 10:00 01/27/25 08:19 75 MG Diagnostic Test (Pha) 1 strip IQ4HR 01/27/25 08:00 01/27/25 08:19 1 STRIP Insulin Human Regular IQ4HR SC 01/27/25 08:00 01/27/25 08:19 15 UNITS Dextrose 50 ml UD PRN IV 01/27/25 07:00 Examination: LUNGS:Normal, CVS:Normal, NEURO:Normal laboratory and microbiology Laboratory Tests 01/27/25 07:38 Test 01/27/25 07:38 Range/Units Serum Glucose 288 #H 74-106 mg/dL Problem List/Assessment/Plan Problem List/Assessment/Plan Acute myocardial infarction Newly diagnosed HFmrEF Hypertension Non-insulin dependent diabetes mellitus Obesity Plan/Recommendation (Dr. Paniagua) The patient underwent a successful PTCA and stenting of the proximal LAD and a transthoracic echocardiogram revealing an LVEF of 45%. Reccommendations are for DAPT, lipid-lowering agent, BB, valsartan and jardiance given HFmrEF. Counseled on risk factor modifications including Mediterranean diet, exercise, and weight loss. Follow up with a primary Ship Steward within 1-2 weeks post-discharge. There is no further cardiac work-up indicated at this time. Kindly call if in need to re-consult. Thank you for allowing us to care for this patient. This medical document was created using an electronic medical record system with voice recognition software and computerized dictation system. Although this document has been carefully reviewed, there might still be some phonetic and typographical errors. Occasional wrong-word or ``sound-alike substitutions may have occurred due to the inherent limitations of voice recognition software. These areas are purely typographical due to imperfections of the software programs and do not reflect any compromise in the patient's medical care. Please read the chart carefully and recognize, using context, where these substitutions have occurred. Plan discussed with: Patient, Other Date of Service: January 27, 2025 Billing Provider: TRACEY RODRIGUEZ Cardiology Common Codes: [id number] HOSP CARE(High TRACEY RODRIGUEZ January 27, 2025 11:53
[2025-01-27] MEDS ORDERED: VALS40TA2 PO (11:56)
[2025-01-27] MEDS ORDERED: EMPA1TAB PO (11:56)
[2025-01-27 12:30] VITALS: BP 142/95; PULSE 108; RESP 16; TEMP 98.3; O2SAT 95
[2025-01-27] MEDS: VALSARTAN 80 MG TAB PO ONE (15:12)
[2025-01-27] MEDS: METOPROLOL SUCCINATE XL 50 MG TAB PO ONE (15:12)
--- NOTE | 2025-01-27 19:52 | DVHPN2 ---
Consult Progress Note Subjective Review of Systems: NEURO:Normal Other Systems: Patient was seen and evaluated in follow up. The patient underwent a successful PTCA and stenting of the proximal LAD and a transthoracic echocardiogram revealing an LVEF of 45%. GLUC 337, AST 97. Telemetry reviewed. Objective vital signs Vital Sign Date Time Temp Pulse Resp B/P (MAP) Pulse Ox O2 Delivery O2 Flow Rate FiO2 01/27/25 08:30 98.3 111 16 148/94 (112) 94 98.3 01/27/25 08:00 Room Air* 0 21 Total Intake and Output 01/26/25 01/26/25 01/27/25 15:00 23:00 07:00 Intake Total 30 ml 120 ml 600 ml Balance 30 ml 120 ml 600 ml medications Current Medications Medications Dose Ordered Sig/Garett Route Start Time Stop Time Status Last Admin Dose Admin Acetaminophen/ Hydrocodone Bitart 1 tab Q4HP PRN PO 01/26/25 11:00 Acetaminophen 650 mg Q6HP PRN PO 01/26/25 11:00 01/26/25 19:58 650 MG Morphine Sulfate 2 mg Q4HPRN PRN IV 01/26/25 11:00 01/26/25 18:08 2 MG Nitroglycerin 0.4 mg Q5MINP PRN SL 01/26/25 11:00 Morphine Sulfate 2 mg Q30M PRN IV 01/26/25 11:00 Pravastatin Sodium 20 mg HS PO 01/26/25 22:00 01/26/25 21:57 20 MG Aspirin 81 mg DAILY PO 01/27/25 10:00 01/27/25 08:19 81 MG Clopidogrel Bisulfate 75 mg DAILY PO 01/27/25 10:00 01/27/25 08:19 75 MG Diagnostic Test (Pha) 1 strip IQ4HR 01/27/25 08:00 01/27/25 11:57 1 STRIP Insulin Human Regular IQ4HR SC 01/27/25 08:00 01/27/25 11:59 9 UNITS Dextrose 50 ml UD PRN IV 01/27/25 07:00 Metoprolol Succinate 25 mg DAILY PO 01/28/25 10:00 Valsartan 80 mg DAILY PO 01/28/25 10:00 Empaglifozin 10 mg DAILY PO 01/28/25 10:00 Examination: GENERAL:Normal, HEENT:Normal, NECK:Normal, LUNGS:Normal, CVS:Normal, ABDOMEN:Normal, NEURO:Normal laboratory and microbiology Laboratory Tests 01/27/25 07:38 Test 01/27/25 07:38 Range/Units Serum Glucose 288 #H 74-106 mg/dL Problem List/Assessment/Plan Problem List/Assessment/Plan Problem List/Assessment/Plan Acute myocardial infarction. Newly diagnosed HFmrEF. Hypertension. Non-insulin dependent diabetes mellitus. Obesity. Plan/Recommendation Continued all current supportive medical care. Patient has been seen by Regina Tee NP on my behalf, her and I discussed the plan with the patient. Recommendations are for DAPT, lipid-lowering agent, BB, valsartan and jardiance given HFmrEF. Counseled on risk factor modifications including Mediterranean diet, exercise, and weight loss. Follow up with a primary Media Traffic [employer] within 1-2 weeks post-discharge. There is no further cardiac work-up indicated at this time. Additional plan as per the hospital course. Plan discussed with: Patient Date of Service: January 27, 2025 Billing Provider: TAMIKA QUESADA MD Cardiology Common Codes: 94131-[id number] INP/OBS CARE (High) TAMIKA QUESADA MD January 27, 2025 14:49
[2025-01-28] MEDS ORDERED: EMPAGLIFLOZIN 10 MG TAB PO SCH (10:00)
[2025-01-28] MEDS ORDERED: VALSARTAN 80 MG TAB PO SCH (10:00)
[2025-01-28] MEDS ORDERED: METOPROLOL SUCCINATE XL 50 MG TAB PO SCH (10:00)
== END 2025-01-27 15:52 | disposition home or self-care (01) | DRG 322 ==
LOC: ER 07:34 → OVERFLOW 10:46 → TELE-WESTW 10:48 → ER 10:48 → TELE-WESTW 16:08
PROVIDERS: ADMIT Nurse Practitioner Family; ATTEND Nurse Practitioner Family
PROC: 027034Z Dilation of Coronary Artery, One Artery with Drug-eluting Intraluminal Device, Percutaneous Approach (ICD-10-PCS; principal; 2025-01-26)
PROC: 4A023N7 Measurement of Cardiac Sampling and Pressure, Left Heart, Percutaneous Approach (ICD-10-PCS; 2025-01-26)
PROC: B241ZZ3 Ultrasonography of Multiple Coronary Arteries, Intravascular (ICD-10-PCS; 2025-01-26)
PROC: B2151ZZ Fluoroscopy of Left Heart using Low Osmolar Contrast (ICD-10-PCS; 2025-01-26)
PROC: B2111ZZ Fluoroscopy of Multiple Coronary Arteries using Low Osmolar Contrast (ICD-10-PCS; 2025-01-26)
DX: I21.4 Non-ST elevation (NSTEMI) myocardial infarction (principal); I50.20 Unspecified systolic (congestive) heart failure; E11.65 Type 2 diabetes mellitus with hyperglycemia; I11.0 Hypertensive heart disease with heart failure; E78.5 Hyperlipidemia, unspecified; I25.10 Atherosclerotic heart disease of native coronary artery without angina pectoris; E66.9 Obesity, unspecified; Z68.30 Body mass index [BMI] 30.0-30.9, adult; Z79.899 Other long term (current) drug therapy
CPT/HCPCS: 36415; 71045; 80048; 80053; 82962; 83735; 84484; 85025; 85610; 85730; 93005; 93306; 96374; 99291; G0378; J1815; J2003; J2250; Q9967